=== PATIENT | female | born 1955 | race Caucasian/White ===

== ENCOUNTER 2017-09-21 08:19 | Day surgery (SDC) | payer OTHER, SELFPAY ==
[2017-09-21] VITALS (7 sets, daily range): BP systolic 118–137; BP diastolic 64–91; PULSE 77–106; RESP 14–16; TEMP 36.3; O2SAT 94–97; BMI 33.7
--- NOTE | 2017-09-21 10:17 | PCM.HP.STD ---
Problem List (1) Screening for colon cancer Status: Acute History of Present Illness Date of Admission: 09/21/17 The patient is a 62 year old F who has a previous history of breast cancer. She has never had a screening colonoscopy. She presents via her open access program to proceed. She denies personal history or family history of colon cancer. She denies abdominal pain. He denies bright red blood per rectum or melena. Her weight is been stable. Energy levels been good. Past Medical History Allergies Penicillins [PCN] Allergy (Verified 09/15/17 15:33) Rash Sulfa (Sulfonamide Antibiotics) Allergy (Verified 09/15/17 15:33) Rash Home Medications: Ambulatory Orders Medication Instructions Recorded Anastrozole [Arimidex] 1 mg PO DAILY 09/15/17 Calcium Carbonate [Calcium] 600 mg PO DAILY 09/15/17 Smoking Status: Never smoker Review of Systems Constitutional: Denies: Anorexia Eyes: Denies: Blurred vision HEENT: Denies: Difficulty Hearing Cardiovascular: Denies: Chest Pain Respiratory: Denies: Cough Gastrointestinal: Denies: Abdominal Pain Genitourinary: Denies: Dysuria Neurological: Denies: Balance problems Psychiatric: Denies: Anxiety VTE Information - Inpt Only VTE Present on Admission: No Patient Problems: Active and Suspected Problems Screening for colon cancer (Acute) - Physical Exam General: Alert, Oriented x3, Cooperative, No apparent distress HEENT: Atraumatic Oral: Moist Mucosa Neck: Supple Lungs: Clear to auscultation Cardiovascular: Regular rate Abdomen: Bowel Sounds Present, Soft, Non Tender Extremities: No clubbing Musculoskeletal: No Tenderness to Palpation of Joints or Extremities Neurological: Cranial nerves II-XII grossly intact Vital Signs Temp Pulse Resp BP Pulse Ox 97.3 F L 77 14 137/68 H 97 09/21/17 08:39 09/21/17 08:39 09/21/17 08:39 09/21/17 08:39 09/21/17 08:39 Oxygen Delivery Method Room Air Weight: 202 lb 13.204 oz Body Mass Index (BMI) 33.7 Assessment/Plan Active and Suspected Problems Screening for colon cancer (Acute) Colonoscopy with possible biopsy or polypectomy is indicated. She is aware of the technique, benefits, risks, alternatives. No guarantees of success have been offered. We will proceed at her direction. Aditya House M.D., F.A.C.S.
--- NOTE | 2017-09-21 10:37 | COLBX_PTH ---
PATIENT: NENO MOJICA LOC: EN U#:[id number] AGE/SX: 62/F ROOM: RE09/21/[address]: Dr. Aditya House MD : [id number] BED: DIS: 09/21/2017 SPEC #: [id number] RECD: 09/21/17 12:42 STATUS: ELENA TESSIE #: [id number] LEX: 09/21/17 10:[address]: Aditya House DEPT: SURGICAL PATHOLOGY RECD BY: Zen Sykes ENTERED: 09/21/17 13:54 SP TYPE: COLON BX OT DR: Dr. Nilson House III, MD Tissues: Descending colon Procedures: Surgery Specimen Level IV HEADER OPERATION: Colonoscopy with biopsy PRE-OP DIAGNOSIS: Screening TISSUE SUBMITTED: Biopsy of descending colon polyp MICROSCOPIC DIAGNOSIS Descending colon polyp, biopsy: Tubular adenoma. AM:adriano 09/22/17 MICROSCOPIC DESCRIPTION Slides are reviewed. GROSS DESCRIPTION Received in fixative is one container labeled with the patient's name and designated descending colon biopsy. The specimen consists of one irregular fragment of light epps soft tissue that measures 0.3 x 0.2 x 0.1 cm. The specimen is totally submitted in one cassette. / AM:adriano 09/21/17 TC:5 CPT: 09120
--- NOTE | 2017-09-21 10:44 | PCM.OPRPT ---
Problem List (1) Screening for colon cancer Status: Acute Report of Operation Date of Procedure: 09/21/17 Pre-Operative Diagnosis: Screening for colon cancer Post-Operative Diagnosis: Diminutive sessile polyp of the descending colon. Ascending and sigmoid diverticulosis Surgery/Procedure Performed:: Colonoscopy with cold forcep polypectomy Description of Surgical Findings:: Timeout and informed consent was obtained. 62-year-old female was taken to the endoscopy suite. She was placed in a left lateral decubitus position. Throughout the procedure in aliquots a total of 150 mg Demerol and 5 mg of Versed were given as intravenous sedation. Digital rectal exam performed. Normal anal tone. Minimal hemorrhoidal changes. Flexible scope inserted in the rectum advanced with tortuous sigmoid colon. With gentle effort the scope was advanced to the transverse colon with transabdominal pressure was advanced to the cecum. The cecum ileocecal valve area was nicely achieved. Bowel prep was quite good. The scope was carefully withdrawn from the cecum ascending colon transverse colon descending colon. In the descending colon a diminutive 4 mm diameter sessile polyp was identified. Photograph was obtained. A cold forcep was used to sample and eradicate. This had a very benign appearance. As the scope was further withdrawn there was rather extensive descending and sigmoid diverticulosis. No evidence of acute inflammation. The scope was retroflexed within the rectum anorectal verge inspected mild hemorrhoidal changes noted. Excess fluid and air was aspirated free the procedure was completed with the patient tolerating it well. Impression Diminutive sessile polyp of the descending colon. Descending and sigmoid diverticulosis. No active inflammation The patient will be notified of pathology results as they become available. Likely will not require another colonoscopy for at least 5 years. She had not had a previous colonoscopy ever. Cc: Dr. Nilson House, III. Visions were given at 1021. Procedure was initiated at 1025. The cecum was reached at 1033.45. The procedure was completed at 1040.50 Aditya House M.D., F.A.C.S. Type of Anesthesia:: IV Sedation
== END 2017-09-21 12:17 | disposition home or self-care (01) ==
LOC: EN 08:19 → AC 08:22
PROVIDERS: Family Provider Family Medicine; PCP Family Medicine; Visit Provider Surgery
PROC: 0DJD8ZZ Inspection of Lower Intestinal Tract, Via Natural or Artificial Opening Endoscopic (ICD-10-PCS; CPT 45378; principal; 2017-09-21 09:25)
DX: Z12.11 Encounter for screening for malignant neoplasm of colon (principal); D12.4 Benign neoplasm of descending colon; K57.30 Diverticulosis of large intestine without perforation or abscess without bleeding; K64.9 Unspecified hemorrhoids; J98.8 Other specified respiratory disorders; R49.0 Dysphonia; M51.36 Other intervertebral disc degeneration, lumbar region; Z85.3 Personal history of malignant neoplasm of breast; Z87.19 Personal history of other diseases of the digestive system; Z78.0 Asymptomatic menopausal state; Z79.899 Other long term (current) drug therapy
CPT/HCPCS: 45380; 88305; J7120

== ENCOUNTER 2024-09-27 10:30 | Outpatient (RCR) | payer SELFPAY | END 2024-10-06 23:59 | LOC: NS 10:30 | PROVIDERS: PCP Internal Medicine; Referring Provider Orthopaedic Surgery; Visit Provider Orthopaedic Surgery | DX: E66.3 Overweight (principal); Z68.29 Body mass index [BMI] 29.0-29.9, adult | CPT/HCPCS: 97802; 97803 ==

== ENCOUNTER 2024-11-01 13:29 | Outpatient (RCR) | payer SELFPAY | END 2024-11-06 23:59 | LOC: NS 13:29 | PROVIDERS: PCP Internal Medicine; Referring Provider Orthopaedic Surgery; Visit Provider Orthopaedic Surgery | DX: Z71.3 Dietary counseling and surveillance (principal); E66.3 Overweight; Z68.29 Body mass index [BMI] 29.0-29.9, adult | CPT/HCPCS: 97803 ==